=== PATIENT | male | born 1980 | race Caucasian/White ===

== ENCOUNTER 2016-10-28 07:13 | Emergency (ER) | payer OTHER ==
[2016-10-28 07:24] VITALS: BP 142/87
[2016-10-28] MEDS ORDERED: Ibuprofen TAB* 800 MG PO ONE (08:31)
[2016-10-28] MEDS ORDERED: Tetan/Diph/Pertus SYR(Tdap)* 0.5 ML SYR(BOOSTRIX) use SYR IM ONE (08:31)
--- NOTE | 2016-10-28 08:37 | ED ---
Upper Extremity Pain - HPI Summary HPI Summary: Ambidextrous pt here w/ Lt middle finger tip injury while at work today. Finger got pinched between a dumpster and wall. Pain w/ bruising, bleeding from small laceration. Denies numbness, tingling, weakness but has limited ROM within DIP and PIP joints d/t swelling -moving finger well in general and no pain or problems with MCP movement. Not sure of last tetanus vaccine - would like this updated today. - History of Current Complaint Chief Complaint: EDLacSutureRecheck Stated Complaint: LEFT POINTER FINGER LAC Time Seen by Provider: 10/28/16 08:13 Hx Obtained From: Patient - Allergies/Home Medications Allergies/Adverse Reactions: Allergies Allergy/AdvReac Type Severity Reaction Status Date / Time No Known Allergies Allergy Verified 10/28/16 07:24 PMH/Surg Hx/FS Hx/Imm Hx Previously Healthy: Yes Endocrine/Hematology History: Denies: Hx Anticoagulant Therapy, Hx Blood Disorders Sensory History: Denies: Hx Contacts or Glasses, Hx Hearing Aid Opthamlomology History: Denies: Hx Contacts or Glasses - Immunization History Date of Tetanus Vaccine: unknown Infectious Disease History: No Infectious Disease History: Reports: History Other Infectious Disease - h/o skin fungal, bacterial meningitis Denies: Hx of Known/Suspected MRSA, Traveled Outside the [place] in Last 30 Days - Family History Known Family History: Positive: None Family History: No FHx of malignant hyperthermia or anesthesia reaction. - Social History Occupation: Employed Full-time Alcohol Use: Occasionally Substance Use Type: Reports: None Smoking Status (MU): Current Some Day Smoker Type: Cigarettes Amount Used/How Often: SOCIALLY Have You Smoked in the Last Year: Yes Review of Systems Positive: no symptoms reported Musculoskeletal: Other - see HPI Skin: Other - see HPI Neurological: Negative Psychological: Normal All Other Systems Reviewed And Are Negative: Yes Physical Exam Triage Information Reviewed: Yes Vital Signs On Initial Exam: Initial Vitals Temp Pulse Resp BP Pulse Ox 97.3 F 90 18 142/87 97 10/28/16 07:20 10/28/16 07:20 10/28/16 07:20 10/28/16 07:20 10/28/16 07:20 Vital Signs Reviewed: Yes Appearance: Positive: Well-Appearing, No Pain Distress, Obese Skin: Positive: Warm - 0.5cm linear laceration over palmar aspect of distal Lt middle finger - hemodynamically stable; surrounding tissue w/ macular ecchymosis ; no tendon observed, Dry Head/Face: Positive: Normal Head/Face Inspection Eyes: Positive: Normal ENT: Positive: Hearing grossly normal, Pharynx normal Respiratory/Lung Sounds: Positive: Breath Sounds Present Cardiovascular: Positive: Pulses are Symmetrical in both Upper and Lower Extremities Musculoskeletal: Positive: Strength/ROM Intact, Pain @ - affected area on Lt middle finger is TTP Neurological: Positive: Normal, Sensory/Motor Intact, Alert, Oriented to Person Place, Time, CN Intact II-III Psychiatric: Positive: Normal Procedures - Laceration/Wound Repair 1 Location: upper extremity - Lt middle finger Description: Linear Length, Depth and Shape: 0.5cm x 2mm Betadine Prep?: Yes Laceration/Wound Explored: clean Closure: Skin Adhesive, SteriStrips Layer Closure?: No Sterile Dressing Applied?: Yes - dermabond with steristrip Diagnostics - Vital Signs Vital Signs Temp Pulse Resp BP Pulse Ox 10/28/16 07:20 97.3 F 90 18 142/87 97 - Laboratory Lab Statement: Any lab studies that have been ordered have been reviewed, and results considered in the medical decision making process. Course/Dx - Diagnoses Provider Diagnoses: Crushing injury of left middle finger Discharge - Discharge Plan Condition: Stable Disposition: HOME Prescriptions: Cephalexin CAP* [Keflex CAP*] 500 mg PO BID #10 cap Patient Education Materials: Crush Injury (ED), Finger Laceration (ED), Steristrips (ED), Skin Adhesive Care (ED) Referrals: Leon Alfonso MD [Primary Care Provider] - Additional Instructions: Keep wound clean and dry for 10-14 days. Do not remove dressing - it was fall off naturally when it is ready to do so. Rest, ice, elevate Compress if bleeding returns Ibuprofen with food for pain Follow-up with PCP in 1 week for wound check *If you develop redness, swelling, streaking, purulent drainage, fever, chills prior, return to ED
--- NOTE | 2016-10-28 08:44 | RAD ---
HISTORY: Crush injury to distal left third digit COMPARISONS: February 02, 2015 VIEWS: 3, Frontal, lateral, and oblique views of the third digit of the left hand FINDINGS: BONE DENSITY: Normal. BONES: There is no displaced fracture. JOINTS: There is no arthropathy. ALIGNMENT: There is no dislocation. SOFT TISSUES: Unremarkable. OTHER FINDINGS: None. IMPRESSION: NO ACUTE OSSEOUS INJURY. IF SYMPTOMS PERSIST, RECOMMEND REPEAT IMAGING.
== END 2016-10-28 09:03 | disposition home or self-care (01) ==
LOC: ED 07:13
DX: S67.193A Crushing injury of left middle finger, initial encounter (principal); W23.0XXA Caught, crushed, jammed, or pinched between moving objects, initial encounter; Y93.9 Activity, unspecified; Y92.9 Unspecified place or not applicable
CPT/HCPCS: 73140; 90471; 90715; 99282; A9270-GY